=== PATIENT | female | born 1975 | race Caucasian/White ===

== ENCOUNTER 2018-04-09 14:29 | Emergency (ER) | payer BC, MEDICAID, OTHER ==
[~2018-04-09] VITALS: Ht 154.9 cm; Wt 62.6 kg
[2018-04-09 14:31] VITALS: BP_SYST 140
[2018-04-09] MEDS: NACL 0.9% 1,000 ML IV ONE ×2 (15:04→16:13)
[2018-04-09] MEDS: KETOROLAC TROMETHAMINE 30 MG VIAL IVP ONE (15:05)
[2018-04-09] MEDS: ONDANSETRON HCL 4 MG/2 ML VIAL IVP ONE (15:05)
[2018-04-09 15:07] LABS: BILIRUBIN,URINE NEGATIVE (NEGATIVE); BLOOD, URINE NEGATIVE (NEGATIVE); CLARITY/URINE CLEAR (CLEAR); COLOR,URINE YELLOW (YELLOW); GLUCOSE,URINE NEGATIVE (NEGATIVE); KETONES,URINE NEGATIVE (NEGATIVE); LEUKOCYTE ESTERASE ,URINE NEGATIVE (NEGATIVE); NITRITE, URINE NEGATIVE (NEGATIVE); PROTEIN URINE NEGATIVE (NEGATIVE); UROBILINOGEN,URINE 0.2 (0.2-1.0)
[2018-04-09 15:11] LABS: BASOPHILS % (AUTO) 0.5 % (0.0-2.0); EOSINOPHILS # (AUTO) 0.1 K/uL (0.0-0.4); EOSINOPHILS % (AUTO) 1.6 % (0.0-4.0); HEMATOCRIT 44.1 % (36-48); LYMPHOCYTES # (AUTO) 2.1 K/uL (1.0-5.5); LYMPHOCYTES % (AUTO) 24.6 % (20.5-51.5); MEAN CORPUSCULAR HEMOGLOBIN 33 pg (27-31); MEAN CORPUSCULAR HGB CONC 34 % (32-36); MEAN CORPUSCULAR VOLUME 97 fL (79.0-98.0); MONOCYTES # (AUTO) 0.6 K/uL (0.0-1.0); NEUTROPHILS # (AUTO) 5.8 K/uL (1.8-7.7); NEUTROPHILS % (AUTO) 66.3 % (40.0-70.0); PLATELET COUNT (AUTO) 257 K/uL (130-430); RED BLOOD CELL COUNT(AUTO) 4.53 MIL/uL (4.2-6.2); RED CELL DISTRIBUTION WIDTH 11.6 % (9.0-15.0); WHITE BLOOD COUNT (AUTO) 8.6 K/uL (4.8-10.8)
[2018-04-09 15:20] LABS: CREATININE 0.91 mg/dL (0.55-1.30); POTASSIUM 3.3 mmol/L (3.5-5.1)
[2018-04-09 15:24] LABS: ALBUMIN 4.3 g/dL (3.4-4.8); TOTAL BILIRUBIN 0.7 mg/dL (0.0-1.0)
[2018-04-09 15:31] LABS: INR 0.9 (0.8-1.2); PROTHROMBIN TIME 9.7 SECS (9.5-12.5)
[2018-04-09] MEDS: DIPHENHYDRAMINE INJ 50 MG/ML VIAL IVP ONE (15:59)
[2018-04-09] MEDS: PROMETHAZINE HCL 25 MG/ML AMP IVP ONE (15:59)
[2018-04-09 18:26] VITALS: BP_SYST 130
== END 2018-04-09 18:26 | disposition home or self-care (01) ==
LOC: SED 14:29
DX: F41.9 Anxiety disorder, unspecified (principal); R10.9 Unspecified abdominal pain; M79.10 Myalgia, unspecified site; R42 Dizziness and giddiness; R11.0 Nausea
CPT/HCPCS: 36415; 74176; 80053; 81003; 82150; 83690; 85025; 85610; 85730; 86710; 93005; 96361; 96374; 96375; 99284; J1200; J1885; J2405; J2550; J7030

== ENCOUNTER 2023-11-07 06:10 | Emergency (ER) | payer MEDICAID, OTHER ==
[~2023-11-07] VITALS: Ht 154.9 cm; Wt 68.0 kg
[2023-11-07 06:30] VITALS: BP_SYST 119; PULSE 88; RESP 18; TEMP 98.6; O2SAT 100
[2023-11-07 07:31] LABS: INFLUENZA TYPE A Negative (NEGATIVE); INFLUENZA TYPE B NEGATIVE (NEGATIVE)
[2023-11-07] MEDS ORDERED: D-ME120S28 PO (07:40)
[2023-11-07] MEDS ORDERED: IBUP-1969 PO (07:40)
[2023-11-07 07:53] VITALS: BP_SYST 119; PULSE 88; RESP 18; TEMP 98.6; O2SAT 100
== END 2023-11-07 07:50 | disposition home or self-care (01) ==
LOC: SED 06:10
DX: B34.9 Viral infection, unspecified (principal); R07.89 Other chest pain; Z20.822 Contact with and (suspected) exposure to COVID-19; Z88.6 Allergy status to analgesic agent
CPT/HCPCS: 36415; 71045; 93005; 99285